=== PATIENT | male | born 1950 | race Caucasian/White ===

== ENCOUNTER 2023-10-07 12:35 | Emergency (ER) | payer MEDICARE, BC ==
[2023-10-07] MEDS ORDERED: Propofol 200 MG/20 ML SDV ONE ×2 (13:27→13:43)
[2023-10-07] MEDS: Propofol 200 MG/20 ML SDV IVPUSH ONE ×2 (13:53→14:34)
== END 2023-10-07 16:11 | disposition home or self-care (01) ==
LOC: JD.ED 12:35
DX: T84.021A Dislocation of internal left hip prosthesis, initial encounter (principal); I10 Essential (primary) hypertension; Z90.49 Acquired absence of other specified parts of digestive tract; Z87.891 Personal history of nicotine dependence
CPT/HCPCS: 27265; 72170; 73501; 99152; 99284; J2704

== ENCOUNTER 2023-12-01 06:15 | Day surgery (SDC) | payer MEDICARE, BC ==
[2023-12-01] MEDS: Lactated Ringers 1,000 ML IV SCH (06:30)
[2023-12-01] MEDS ORDERED: Sodium Chloride 0.9% 10 ML Syringe FLUSH PRN (06:37)
[2023-12-01] MEDS ORDERED: fentaNYL 100 MCG/2 ML SDV IVPUSH PRN (06:37)
[2023-12-01] MEDS ORDERED: HYDROmorphone 0.5 MG/0.5 ML Syringe IVPUSH PRN (06:37)
[2023-12-01] MEDS ORDERED: Ondansetron 4 MG/2 ML SDV IVPUSH PRN (06:37)
[2023-12-01] MEDS ORDERED: Propofol 200 MG/20 ML SDV ONE ×3 (06:40)
[2023-12-01] MEDS ORDERED: Midazolam 1 MG/ML 2 ML SDV ONE (06:40)
[2023-12-01] MEDS ORDERED: ceFAZolin 2 GM Vial ONE (06:42)
[2023-12-01] MEDS ORDERED: Phenylephrine 1% 10 MG/ML SDV ONE (07:24)
[2023-12-01] MEDS ORDERED: Sodium Chloride 0.9% 100 ML ONE (07:24)
[2023-12-01] MEDS ORDERED: ePHEDrine 50 MG/ML SDV ONE (07:45)
[2023-12-01] MEDS: Morphine 8 MG, EPINEPHrine 0.3 MG, Cefuroxime 750 MG, Ketorolac 30 MG, Sodium Chloride ... PRN (08:00)
[2023-12-01] MEDS ORDERED: Lactated Ringers 1,000 ML IV ONE (08:00)
[2023-12-01] MEDS: Vancomycin 1 GM SDV ONE (08:01)
[2023-12-01] MEDS: Tranexamic Acid 1,000 MG/10 ML Vial ONE (08:01)
[2023-12-01] MEDS ORDERED: fentaNYL 100 MCG/2 ML SDV ONE (08:13)
[2023-12-01] MEDS ORDERED: Sodium Chloride 0.9% 10 ML Syringe FLUSH SCH (09:00)
[2023-12-01] MEDS: Acetaminophen 325 MG Tab PO ONE (09:02)
[2023-12-01] MEDS: oxyCODONE ER 10 MG TAB.ER PO ONE (09:03)
[2023-12-01] MEDS: Pregabalin 25 MG Cap PO ONE (09:03)
[2023-12-01] MEDS: oxyCODONE 5 MG Tab PO PRN (11:55)
== END 2023-12-01 12:45 | disposition home or self-care (01) ==
LOC: JD.SDS 06:15
PROVIDERS: ATTEND Orthopaedic Surgery
DX: T84.091A Other mechanical complication of internal left hip prosthesis, initial encounter (principal); M96.842 Postprocedural seroma of a musculoskeletal structure following a musculoskeletal system procedure; G47.00 Insomnia, unspecified; F41.9 Anxiety disorder, unspecified; K21.00 Gastro-esophageal reflux disease with esophagitis, without bleeding; I10 Essential (primary) hypertension; M51.36 Other intervertebral disc degeneration, lumbar region; H91.93 Unspecified hearing loss, bilateral; E78.00 Pure hypercholesterolemia, unspecified; Z79.899 Other long term (current) drug therapy; Z87.891 Personal history of nicotine dependence; Z79.82 Long term (current) use of aspirin; Z96.642 Presence of left artificial hip joint
CPT/HCPCS: 01214; 36415; 73501-26-LT; 73501-LT; 86850; 86900; 86901; 97110-GP; 97116-GP; 97161-GP; 99100; A9270-GY; C1776; J0171; J0690; J0697; J1885; J2250; J2270; J2371; J2704; J3010; J3370; J3490; J7120

== ENCOUNTER 2024-09-01 19:11 | Emergency (ER) | payer MEDICARE, BC ==
[2024-09-01] MEDS: HYDROmorphone 1 MG/ML Syringe IVPUSH ONE (20:17)
[2024-09-01] MEDS: Sodium Chloride 0.9% 10 ML Syringe FLUSH PRN (20:21)
[2024-09-01] MEDS: Propofol 200 MG/20 ML SDV IVPUSH ONE (20:48)
== END 2024-09-01 22:10 | disposition home or self-care (01) ==
LOC: JD.ED 19:11
DX: T84.021A Dislocation of internal left hip prosthesis, initial encounter (principal); I10 Essential (primary) hypertension; E78.00 Pure hypercholesterolemia, unspecified; K21.9 Gastro-esophageal reflux disease without esophagitis; Z79.899 Other long term (current) drug therapy; X50.9XXA Other and unspecified overexertion or strenuous movements or postures, initial encounter
CPT/HCPCS: 27265; 73502; 96374; 99152; 99283; J1171; J2704; 27266; 99284

== ENCOUNTER 2024-12-06 07:32 | Day surgery (SDC) | payer MEDICARE, BC ==
[2024-12-06] MEDS: Cefuroxime 10 MG/ML SYRINGE EYERT SCH (06:58)
[2024-12-06] MEDS: Lidocaine 1% PF 2 ML SDV INJECT SCH (06:58)
[2024-12-06] MEDS: Pilocarpine 4% Ophth Soln 15 ML Bot EYERT SCH (06:58)
[2024-12-06] MEDS: Tetracaine HCl/PF 0.5% 4 ML Bottle EYEBOTH SCH (06:58)
[2024-12-06] MEDS: Polymyxin B/Trimethoprim 10 ML Bottle EYERT SCH (06:58)
[2024-12-06] MEDS: Tropicamide 1% Ophth Soln 3 ML Bottle EYERT SCH (07:55)
== END 2024-12-06 09:44 ==
LOC: JD.SDS 07:32
PROVIDERS: ATTEND Ophthalmology
DX: H25.813 Combined forms of age-related cataract, bilateral (principal); H21.81 Floppy iris syndrome; H18.413 Arcus senilis, bilateral; H02.831 Dermatochalasis of right upper eyelid; H02.834 Dermatochalasis of left upper eyelid; H57.813 Brow ptosis, bilateral; H16.223 Keratoconjunctivitis sicca, not specified as Sjogren's, bilateral; H16.103 Unspecified superficial keratitis, bilateral; I10 Essential (primary) hypertension; E78.00 Pure hypercholesterolemia, unspecified; Z79.899 Other long term (current) drug therapy
CPT/HCPCS: 66982; A9270; J0697; J3490

== ENCOUNTER 2025-01-10 08:21 | Day surgery (SDC) | payer MEDICARE, BC ==
[2025-01-10] MEDS: Lidocaine 1% PF 2 ML SDV INJECT SCH (07:19)
[2025-01-10] MEDS: Cefuroxime 10 MG/ML SYRINGE EYELF SCH (07:19)
[2025-01-10] MEDS: Tetracaine HCl/PF 0.5% 4 ML Bottle EYEBOTH SCH (07:19)
[2025-01-10] MEDS: Pilocarpine 4% Ophth Soln 15 ML Bot EYELF SCH (07:19)
[2025-01-10] MEDS: Polymyxin B/Trimethoprim 10 ML Bottle EYELF SCH (07:20)
[2025-01-10] MEDS: Tropicamide 1% Ophth Soln 3 ML Bottle EYELF SCH (09:10)
== END 2025-01-10 10:40 ==
LOC: JD.SDS 08:21
PROVIDERS: ATTEND Ophthalmology
DX: H25.812 Combined forms of age-related cataract, left eye (principal); H21.81 Floppy iris syndrome; H21.40 Pupillary membranes, unspecified eye; H18.413 Arcus senilis, bilateral; H02.834 Dermatochalasis of left upper eyelid; H02.831 Dermatochalasis of right upper eyelid; H57.813 Brow ptosis, bilateral; H16.223 Keratoconjunctivitis sicca, not specified as Sjogren's, bilateral; H16.103 Unspecified superficial keratitis, bilateral; I10 Essential (primary) hypertension; E78.00 Pure hypercholesterolemia, unspecified; Z79.899 Other long term (current) drug therapy
CPT/HCPCS: A9270-GY; J0697; J3490

== ENCOUNTER 2025-02-07 11:24 | Day surgery (SDC) | payer MEDICARE, BC ==
[~2025-02-07 11:24] MED LIST: Pilocarpine 4% Ophth Soln 15 ML Bot EYELF SCH
[2025-02-07] MEDS: Polymyxin B/Trimethoprim 10 ML Bottle EYELF SCH (11:30)
[2025-02-07] MEDS: Tropicamide 1% Ophth Soln 3 ML Bottle EYELF SCH (11:36)
[2025-02-07] MEDS: Tetracaine HCl/PF 0.5% 4 ML Bottle EYEBOTH SCH (12:02)
[2025-02-07] MEDS: Lidocaine 1% PF 2 ML SDV INJECT SCH (13:13)
[2025-02-07] MEDS: Cefuroxime 10 MG/ML SYRINGE EYELF SCH (13:19)
== END 2025-02-07 13:27 | disposition home or self-care (01) ==
LOC: JD.SDS 11:24
PROVIDERS: ATTEND Ophthalmology
DX: H59.022 Cataract (lens) fragments in eye following cataract surgery, left eye (principal); H16.223 Keratoconjunctivitis sicca, not specified as Sjogren's, bilateral; H16.103 Unspecified superficial keratitis, bilateral; H02.831 Dermatochalasis of right upper eyelid; H02.834 Dermatochalasis of left upper eyelid; H57.813 Brow ptosis, bilateral; H18.413 Arcus senilis, bilateral; E78.00 Pure hypercholesterolemia, unspecified; I10 Essential (primary) hypertension; Z87.891 Personal history of nicotine dependence; Z79.899 Other long term (current) drug therapy; Z53.8 Procedure and treatment not carried out for other reasons
CPT/HCPCS: A9270; J0697; J3490